=== PATIENT | female | born 1960 | race Caucasian/White ===

== ENCOUNTER 2016-12-05 11:53 | Emergency (ER) | payer MEDICAID, OTHER ==
[~2016-12-05] VITALS: Wt 110.0 kg
[~2016-12-05 11:53] MED LIST: BACTDS PO; CLIN-73 PO; IBUP-1542 PO
--- NOTE | 2016-12-05 12:58 | ERA ---
ER Documentation Chief Complaint Date/Time DATE: 12/05/16 TIME: 12:57 Chief Complaint SOB, COUGHING X6 DAYS HPI The patient is a 56-year-old female, presenting to the ER because of cough, congestion for the last 5 days. She denies fever, chills, neck pain, chest pain , abdominal pain, vomiting, dysuria, diarrhea. She does not smoke or drink Past medical history: Hypothyroidism, diabetes mellitus, asthma Past surgical history: Left inguinal herniorrhaphy ROS All systems reviewed and are negative except as per history of present illness. Medications Home Meds Active Scripts Prednisone* (Prednisone*) 20 Mg Tab, 60 MG PO DAILY for 5 Days, TAB Prov:HELGA GREENE MD 12/05/16 Azithromycin* (Zithromax*) 250 Mg Tablet, 250 MG PO .ZPACK DIRECTED, #6 TAB TAKE 500 MG (2 TABS) THE FIRST DAY THEN 250 MG (1 TAB) DAYS 2-5 Prov:HELGA GREENE MD 12/05/16 Dextromethorphan Hb-Promethazine Hcl (Promethazine DM Syrup) 473 Ml Syrup, 10 ML PO Q6H Y for COUGH, #4 OZ Prov:HELGA GREENE MD 12/05/16 Albuterol Sulfate* (Proair HFA*) 8.5 Gm Hfa.aer.ad, 2 PUFF INH Q4, #1 INHALER Prov:HELGA GREENE MD 12/05/16 Albuterol Sulfate* (Albuterol Sulfate*) 2 Mg Tablet, 2 MG PO QID, #120 TAB Prov:HLEGA GREENE MD 12/05/16 Clindamycin Hcl* (Clindamycin Hcl*) 300 Mg Capsule, 300 MG PO TID for 10 Days, CAP Prov:LIZBETH KAUR PA-C 03/29/16 Sulfamethoxazole-Trimethoprim* (Bactrim* DS) 800-160 Mg Tab, 1 TAB PO BID for 7 Days, TAB Prov:KAR BOUCHER NP 03/25/16 Ibuprofen* (Motrin*) 600 Mg Tab, 600 MG PO Q6H Y for PAIN AND OR ELEVATED TEMP, #30 TAB Prov:KAR BOUCHER NP 03/25/16 Allergies Allergies: Coded Allergies: Penicillins (Verified Allergy, Unknown, RASH, 03/29/16) PMhx/Soc History of Surgery: Yes (Hernia repair) Anesthesia Reaction: No Hx Neurological Disorder: No Hx Respiratory Disorders: Yes (Asthma) Hx Cardiac Disorders: No Hx Psychiatric Problems: No Hx Miscellaneous Medical Probl: Yes (DM, THYROID ) Hx Alcohol Use: No Hx Substance Use: No Hx Tobacco Use: No Physical Exam Vitals Vital Signs Date Time Temp Pulse Resp B/P Pulse Ox O2 Delivery O2 Flow Rate FiO2 12/05/16 13:35 89 22 93 21 12/05/16 12:12 98.3 89 22 114/57 93 Physical Exam Const: No acute distress. Head: Atraumatic. Eyes: Normal Conjunctiva. ENT: Normal External Ears, Nose and Mouth. Neck: Full range of motion. No meningismus. Resp: Mild bilateral expiratory wheezes Cardio: Regular rate and rhythm. Abd: Soft, non distended, normal bowel sounds, non tender. Skin: No petechiae or rashes. Back: No midline or flank tenderness. Ext: No cyanosis, or edema. Neur: Awake and alert. No focal deficit Psych: Normal Mood and Affect. Results 24 hrs Current Medications Medications (Trade) Dose Ordered Sig/Zeny Route PRN Reason Start Time Stop Time Status Last Admin Dose Admin Levalbuterol (Xopenex Neb) 1.25 mg ONCE ONCE N 12/05/16 13:30 12/05/16 13:31 DC 12/05/16 13:32 Ipratropium [place] (Atrovent 0.02% (Neb)) 0.5 mg ONCE ONCE HHN 12/05/16 13:30 12/05/16 13:31 DC 12/05/16 13:32 Prednisone (Prednisone) 50 mg ONCE ONCE PO 12/05/16 15:00 12/05/16 15:01 Procedures/[place] [id number] Radiology Main Line: [phone] DIAGNOSTIC IMAGING REPORT Patient: DAYRON FU : 1960 Age: 56 Sex: F MR #: [id number] DOS: 12/05/16 1318 Ordering MD: HELGA GREENE MD Location: [facility] Room/Bed: PROCEDURE: XR Chest. CLINICAL INDICATION: Cough and shortness of breath. TECHNIQUE: Single frontal view of the chest was obtained. COMPARISON: None FINDINGS: The soft tissues are generous. there is a suboptimal inspiration.. The bony elements are normal. The heart, cardiomediastinal silhouette and hilar structures are normal. The pulmonary vasculature is normal. There is a left- sided aorta. The lungs are clear. The costophrenic angles are normal. IMPRESSION: 1. There is no evidence of active cardiopulmonary disease allowing for poor inspiration. RPTAT:AAJJ Physician Ivy Date Time Electronically viewed and signed by Physician Ivy on 12/05/2016 14:21 JM/ CC: HELGA GREENE MD MEDICAL MAKING DECISION: The patient is a 56-year-old female, presenting to the ER because of acute asthmatic bronchitis. She was treated with prednisone 50 mg p.o., Atrovent 0.5 and Xopenex 1.25 mg nebulizer with good response. The differential diagnoses considered include but are not limited to asthma, COPD, pneumonia, pulmonary embolus, pleural effusion, congestive heart failure. Departure Diagnosis: Primary Impression: Asthmatic bronchitis Condition: Good Comments She was discharged with albuterol MDI, Phenergan DM, Zithromax, prednisone I discussed the findings with the patient. I advised the patient to follow-up with the primary physician in about 1-2 days, sooner if needed and return if any concern. HELGA GREENE MD Dec 05, 2016 12:58
[2016-12-05] MEDS ORDERED: IPRATROPIUM (NEB) 0.5 MG/2.5 ML AMP HHN ONE (13:30)
[2016-12-05] MEDS ORDERED: LEVALBUTEROL (NEB) 1.25 MG/0.5 ML AMP HHN ONE (13:30)
--- NOTE | 2016-12-05 14:21 | RADRPT ---
PROCEDURE: XR Chest. CLINICAL INDICATION: Cough and shortness of breath. TECHNIQUE: Single frontal view of the chest was obtained. COMPARISON: None FINDINGS: The soft tissues are generous. there is a suboptimal inspiration.. The bony elements are normal. T he heart, cardiomediastinal silhouette and hilar structures are normal. The pulmonary vasculature is normal. There is a left-sided aorta. The lungs are clear. The costophrenic angles are normal. IMPRESSION: 1. There is no evidence of active cardiopulmonary disease allowing for poor inspiration. RPTAT:AAJJ Physician Ivy Date Time Electronically viewed and signed by Physician Ivy on 12/05/2016 14:21 /
[2016-12-05] MEDS ORDERED: ALBU8.5H3 INH (14:57)
[2016-12-05] MEDS ORDERED: ALBU2TAB5 PO (14:57)
[2016-12-05] MEDS ORDERED: AZIT250T94 PO (14:58)
[2016-12-05] MEDS ORDERED: PRED20TA PO (14:58)
[2016-12-05] MEDS ORDERED: D-ME473S18 PO (14:58)
[2016-12-05] MEDS ORDERED: predniSONE 50 MG TAB PO ONE (15:00)
== END 2016-12-05 15:20 | disposition home or self-care (01) ==
LOC: FTE 11:53
DX: J45.901 Unspecified asthma with (acute) exacerbation (principal); E03.9 Hypothyroidism, unspecified; E11.9 Type 2 diabetes mellitus without complications
CPT/HCPCS: 71010; 94664; J7512; Z7502; Z7610

== ENCOUNTER 2017-08-18 16:02 | Emergency (ER) | END 2017-08-18 18:50 | disposition home or self-care (01) ==

== ENCOUNTER 2017-12-15 01:32 | Emergency (ER) | END 2017-12-15 05:00 | disposition home or self-care (01) ==